=== PATIENT | female | born 1985 | race Caucasian/White ===

== ENCOUNTER 2016-11-07 20:17 | Emergency (ER) | payer OTHER ==
[~2016-11-07] VITALS: Ht 165.1 cm; Wt 59.0 kg
[~2016-11-07 20:17] MED LIST: AMOXICILLIN 50500 MG PO; AMOXICILLIN500 M1 PO; FLOVENT HFA 2220 MC1; NORCO 5-325 TA1 EACH PO; PROAIR HFA8.5 GM PO; VENTOLIN HFA 1818 GM
[2016-11-07 21:12] LABS: ABSOLUTE NEUTROPHILS 4.8 thou/uL (1.4-8.2); BASOPHILS 0.5 % (0.0-2.0); EOSINOPHILS 3.5 % (0.0-3.0); HEMATOCRIT 41.2 % (37.0-47.0); HEMOGLOBIN 13.7 gm/dL (12.0-15.0); LYMPHOCYTES 26.4 % (24.0-44.0); MANUAL DIFF NO; MCH 29.7 pg (26.0-34.0); MCHC 33.2 g/dL (28.0-37.0); MCV 89.5 fL (80.0-100.0); MONOCYTES 6.6 % (1.0-8.0); PLATELET COUNT 175 thou/uL (150-400); WBC 7.7 thou/uL (4.0-11.0)
[2016-11-07 21:17] LABS: CALCIUM 8.4 mg/dL (8.5-10.1); CREATININE 0.8 mg/dL (0.6-1.0); POTASSIUM 4.1 mmol/L (3.5-5.1)
[2016-11-07] MEDS ORDERED: ONDANSETRON HCL4 M2 PO (23:03)
[2016-11-07] MEDS ORDERED: ANTIVERT25 MG PO (23:04)
[2016-11-07 23:10] VITALS: BP 109/69
== END 2016-11-07 23:16 | disposition home or self-care (01) ==
LOC: ER 20:17
PROVIDERS: Nurse Practitioner
DX: R42 Dizziness and giddiness (principal); G40.909 Epilepsy, unspecified, not intractable, without status epilepticus; J45.909 Unspecified asthma, uncomplicated

== ENCOUNTER 2017-01-25 20:00 | Emergency (ER) | payer OTHER ==
[~2017-01-25] VITALS: Ht 165.1 cm; Wt 59.0 kg
[~2017-01-25 20:00] MED LIST changes: +ANTIVERT25 MG PO; +ONDANSETRON HCL4 M2 PO
[2017-01-25 20:49] LABS: URINE BILIRUBIN NEGATIVE (Negative); URINE BLOOD NEGATIVE (Negative); URINE COLOR YELLOW; URINE GLUCOSE-RANDOM* NEGATIVE (Negative); URINE KETONES NEGATIVE (Negative); URINE LEUKOCYTES-REFLEX NEGATIVE (Negative); URINE PROTEIN (DIPSTICK) TRACE (Negative); URINE SPECIFIC GRAVITY >= 1.030 (1.003-1.035); URINE UROBILINOGEN 0.2 E.U./dl (0.2-1.0)
[2017-01-25 21:24] LABS: ABSOLUTE NEUTROPHILS 2.3 thou/uL (1.4-8.2); BASOPHILS 0.6 % (0.0-2.0); EOSINOPHILS 4.6 % (0.0-3.0); HEMATOCRIT 37.8 % (37.0-47.0); HEMOGLOBIN 12.4 gm/dL (12.0-15.0); LYMPHOCYTES 45.7 % (24.0-44.0); MCH 30.1 pg (26.0-34.0); MCHC 32.8 g/dL (28.0-37.0); MCV 91.7 fL (80.0-100.0); PLATELET COUNT 152 thou/uL (150-400); POLYS 40.1 % (36.0-66.0); RBC 4.13 mil/uL (4.20-5.00); RDW 13.1 % (10.5-14.5); WBC 5.7 thou/uL (4.0-11.0)
[2017-01-25 21:27] LABS: MANUAL DIFF NO
[2017-01-25 21:33] LABS: CALCIUM 8.3 mg/dL (8.5-10.1)
[2017-01-25 21:37] LABS: ALBUMIN 3.4 g/dL (3.4-5.0); TOTAL BILIRUBIN 0.3 mg/dL (<0.1-1.0); TOTAL PROTEIN 6.5 g/dL (6.4-8.2)
[2017-01-25] MEDS ORDERED: URISPAS100 MG PO (22:00)
[2017-01-25 22:10] LABS: LARGE PLATELETS OCCASIONAL
[2017-01-25 23:04] VITALS: BP 110/56
== END 2017-01-25 23:05 | disposition home or self-care (01) ==
LOC: ER 20:00
PROVIDERS: Emergency Medicine
DX: R10.9 Unspecified abdominal pain (principal); R35.0 Frequency of micturition; J45.909 Unspecified asthma, uncomplicated

== ENCOUNTER 2017-03-25 19:22 | Emergency (ER) | payer OTHER ==
[~2017-03-25] VITALS: Ht 165.1 cm; Wt 59.0 kg
[~2017-03-25 19:22] MED LIST changes: +URISPAS100 MG PO
[2017-03-25 20:39] LABS: ABSOLUTE NEUTROPHILS 2.3 thou/uL (1.4-8.2); BASOPHILS 0.7 % (0.0-2.0); EOSINOPHILS 5.7 % (0.0-3.0); HEMATOCRIT 38.8 % (37.0-47.0); HEMOGLOBIN 12.6 gm/dL (12.0-15.0); LYMPHOCYTES 45.6 % (24.0-44.0); MCH 29.6 pg (26.0-34.0); MCHC 32.5 g/dL (28.0-37.0); MCV 91.2 fL (80.0-100.0); MONOCYTES 9.1 % (1.0-8.0); PLATELET COUNT 152 thou/uL (150-400); POLYS 38.9 % (36.0-66.0); RBC 4.26 mil/uL (4.20-5.00); RDW 13.1 % (10.5-14.5); WBC 5.8 thou/uL (4.0-11.0)
[2017-03-25 20:41] LABS: MANUAL DIFF NO
[2017-03-25 20:49] LABS: CALCIUM 8.5 mg/dL (8.5-10.1); CREATININE 0.9 mg/dL (0.6-1.0); POTASSIUM 3.4 mmol/L (3.5-5.1)
[2017-03-25 20:54] LABS: ALBUMIN 3.6 g/dL (3.4-5.0); TOTAL BILIRUBIN 0.2 mg/dL (<0.1-1.0)
[2017-03-25 21:05] LABS: URINE BILIRUBIN NEGATIVE (Negative); URINE BLOOD NEGATIVE (Negative); URINE COLOR YELLOW; URINE GLUCOSE-RANDOM* NEGATIVE (Negative); URINE KETONES NEGATIVE (Negative); URINE LEUKOCYTES-REFLEX NEGATIVE (Negative); URINE PROTEIN (DIPSTICK) NEGATIVE (Negative); URINE SPECIFIC GRAVITY 1.015 (1.003-1.035)
[2017-03-25] MEDS ORDERED: ZOFRAN ODT4 M1 PO (21:41)
[2017-03-25 22:15] VITALS: BP 113/61
== END 2017-03-25 22:16 | disposition home or self-care (01) ==
LOC: ER 19:22
PROVIDERS: Physician Assistant
DX: R10.30 Lower abdominal pain, unspecified (principal); R11.2 Nausea with vomiting, unspecified; J45.909 Unspecified asthma, uncomplicated